=== PATIENT | female | born 1995 | race Caucasian/White ===

== ENCOUNTER 2019-01-27 00:29 | Emergency (ER) | payer MEDICAID ==
[~2019-01-27] VITALS: Ht 160 cm; Wt 59.0 kg
[2019-01-27] MEDS ORDERED: KETOROLAC 30MG/ML VIAL IM ONE (01:45)
[2019-01-27 02:39] VITALS: BP 99/72
== END 2019-01-27 04:10 | disposition home or self-care (01) ==
LOC: ER 00:29
DX: R07.89 Other chest pain (principal)
CPT/HCPCS: 71045; 81025; 93005; 96372; 99283; J1885

== ENCOUNTER 2024-07-04 06:23 | Emergency (ER) | payer BC, MEDICAID ==
[~2024-07-04] VITALS: Ht 160 cm; Wt 78.0 kg
[2024-07-04 06:36] VITALS: TEMP 36.7; O2SAT 98
[2024-07-04 07:02] LABS: CLARITY URINE CLEAR (CLEAR); COLOR URINE DARK YELLOW (YELLOW); GLUCOSE URINE NEGATIVE (NEGATIVE); KETONES URINE NEGATIVE (NEGATIVE); LEUKOCYTE ESTERASE URINE TRACE (NEGATIVE); NITRITE URINE NEGATIVE (NEGATIVE); OCCULT BLOOD URINE TRACE (NEGATIVE); PROTEIN URINE NEGATIVE (NEGATIVE); SPECIFIC GRAVITY URINE 1.015 (1.005-1.030)
[2024-07-04 07:28] LABS: SQUAMOUS EPITHELIAL CELL URINE 1+ /lpf (RARE/1+); WBC URINE 0-2 /hpf (0-2)
[2024-07-04 07:29] LABS: BACTERIA URINE 1+; YEAST URINE NONE SEEN
[2024-07-04 07:53] LABS: BASOPHILS % 0.3 % (0.0-2.0); EOSINOPHILS % 1.5 % (0.0-5.0); HEMOGLOBIN. 13.2 g/dL (12.0-16.0); LYMPHOCYTES % 16.6 % (20.0-50.0); MEAN CORPUSCULAR HEMOGLOBIN 29.2 pg (28.0-32.0); MEAN CORPUSCULAR HGB CONC 33.8 g/dL (31.0-37.0); MEAN CORPUSCULAR VOLUME 86.2 fL (81.0-99.0); MEAN PLATELET VOLUME 8.1 fl (7.4-10.4); MONOCYTES % 6.1 % (2.0-8.0); NEUTROPHILS % 75.5 % (40.0-76.0); PLATELET 317 x1000/uL (130-400); RED BLOOD CELL COUNT 4.53 mill/uL (4.2-5.4); RED CELL DISTRIBUTION WIDTH 14.1 % (11.6-14.6); WHITE BLOOD COUNT 8.3 x1000/uL (4.5-11.0)
[2024-07-04 08:03] LABS: CHLORIDE 104 mEq/L (98-107); POTASSIUM 3.7 mEq/L (3.5-5.1); SODIUM 138 mEq/L (136-145)
[2024-07-04 08:04] LABS: CALCIUM 9.4 mg/dL (8.7-10.4); CARBON DIOXIDE 23 mEq/L (21-32)
[2024-07-04 08:09] LABS: CREATININE 0.6 mg/dL (0.6-1.0); GLUCOSE 126 mg/dL (70-105); UREA NITROGEN BLOOD 5 mg/dL (9-23)
[2024-07-04 08:11] LABS: ALANINE AMINOTRANSFERASE 352 IU/L (10-49); ALBUMIN 4.8 g/dL (3.2-4.8); ASPARTATE AMINOTRANSFERASE 307 IU/L (<34); BILIRUBIN DIRECT 1.7 mg/dL (<=3.0); BILIRUBIN TOTAL 2.8 mg/dL (0.1-1.0); PROTEIN TOTAL 7.4 g/dL (6.0-8.3)
[2024-07-04] MEDS: MORPHINE SULFATE 4 MG/ML INJ (FOR IV/IM USE) IV STA ×2 (08:50→12:09)
[2024-07-04] MEDS: ONDANSETRON HCL 4MG/2ML INJ IV STA (08:50)
[2024-07-04 12:09] VITALS: PULSE 78
[2024-07-04 12:42] VITALS: BP 124/75; RESP 15; O2SAT 99
== END 2024-07-04 12:53 | disposition home or self-care (01) ==
LOC: ER 06:23 → CANBEDREQ 12:50 → ER 12:53
DX: K80.71 Calculus of gallbladder and bile duct without cholecystitis with obstruction (principal)
CPT/HCPCS: 99285; 74181; 96374; 76705; 96375; 80076; 80048; 81003; 81025; 83690; 85025; 36415; 96376; J2405; J2270